=== PATIENT | male | born 1975 | race Caucasian/White ===

== ENCOUNTER 2024-01-05 20:46 | Emergency (ER) | payer BC, SELFPAY ==
[2024-01-05 20:50] VITALS: BP 150/94
--- NOTE | 2024-01-05 22:20 | ED.SKININJ ---
HPI-Injury
<KI Bautista (Lenka) - Last Filed: 01/05/24 22:42>
General
Chief Complaint: Musculo-Skeletal Complaint
Source: patient
Exam Limitations: none
Time Seen by Provider: 01/05/24 22:09
Nursing documentation reviewed up to this point in time: agreed with
History of Present Illness-Injury
Is pt an associate of [facility]?: No
Initial Injury comments:
Pt is a 48 yo male with PMHx of R olecranon bursitis who presents to the ED with concerns over retained foreign body near the L elbow x 5d. Pt states last (12/31), he was wood working and must have scraped his elbow on some wood. Later in the
day he removed a 1.5 inch piece of wood from his forearm and noticed some pain and swelling near his L elbow. He attempted to squeeze the area, but believes he pushed a wood sliver in further. 4d ago (Friday, 01/01), he had a telehealth visit and was
started on Bactrim BID x 7d. He reports the swelling and pain improved initially, but today the pain worsened and radiated to above his L elbow, 'it also feels more swollen'. He has pain with active supination and elbow flexion. Denies fevers,
chills, myalgias, numbness, tingling, streaking, cold extremities.
Unknown date of last tetanus, states likely over 10 years ago.
Past History
<KI Bautista (Lenka) - Last Filed: 01/05/24 22:42>
Past History
ED Past Medical History: GERD
ED Past Surgical History: Orthopedic (Left knee ACL repair, right olecranon bursitis) and Other (Hernia repair)
Social History
Tobacco: Non-smoker
Alcohol: None
Personal:
Living: with family
Employment: Employed
Family History
Family History: Other (Noncontributory)
Skin Exam
<KI Bautista (Lenka) - Last Filed: 01/05/24 22:42>
Foreign Body
Left Posterior Lateral Elbow:
Foreign body is: other (suspected deep foreign body. 3.5 cm x 3.5 cm region of indurated, mildly erythematous area to L posterior lateral elbow. No fluctuance, no drainage. Original laceration site healed over.)
Foreign body can be visualized?: No
Phy Exam
<KI Bautista (Lenka) - Last Filed: 01/05/24 22:42>
General Physical Exam
General Presentation: well appearing
General age: appears stated age
General Skin: warm and dry
General Habitus: normal
General Mental: alert
General Hydration: appears well hydrated
Cardiovascular Exam
Cardiovascular Exam: normal peripheral pulses
Pulmonary Exam
Pulmonary Exam: no respiratory distress
Neurological Exam
Neurological Exam: alert and oriented x3
Musculoskeletal Exam
Musculoskeletal Exam: full ROM, no edema, neuro vasc intact and other
Course
<KI Bautista (Lenka) - Last Filed: 01/05/24 22:42>
Orders/Labs/Results
Orders:
Orders
01/05/24 22:27
Tetanus/Diphth/Acelpertussis [Adacel] 0.5 ml IM .ONCE ONE
Elbow, 3 view, Left [CR Elbow - Left Min 3 Views ] Urgent
Comment:
Reason For Exam: abrasion post distal elbow-concern for FB
01/05/24 22:28
Ibuprofen [Motrin] 800 mg PO NOW STA
01/05/24 23:32
Cephalexin Monohydrate [Keflex] 1,000 mg PO NOW STA
Vital Signs
Initial and Last Documented VS:
Initial Vital Signs
Temp Pulse Resp BP Pulse Ox
98 F 80 22 150/94 99
01/05/24 20:50 01/05/24 20:50 01/05/24 20:50 01/05/24 20:50 01/05/24 20:50
Last Documented Vital Signs
Temp Pulse Resp BP Pulse Ox
98 F 66 22 150/98 100
01/05/24 20:50 01/05/24 23:35 01/05/24 23:35 01/05/24 23:35 01/05/24 23:35
<Elizabet Morrell DO - Last Filed: 01/05/24 23:46>
Orders/Labs/Results
Orders:
Orders
01/05/24 22:27
Tetanus/Diphth/Acelpertussis [Adacel] 0.5 ml IM .ONCE ONE
Elbow, 3 view, Left [CR Elbow - Left Min 3 Views ] Urgent
Comment:
Reason For Exam: abrasion post distal elbow-concern for FB
01/05/24 22:28
Ibuprofen [Motrin] 800 mg PO NOW STA
01/05/24 23:32
Cephalexin Monohydrate [Keflex] 1,000 mg PO NOW STA
Vital Signs
Initial and Last Documented VS:
Initial Vital Signs
Temp Pulse Resp BP Pulse Ox
98 F 80 22 150/94 99
01/05/24 20:50 01/05/24 20:50 01/05/24 20:50 01/05/24 20:50 01/05/24 20:50
Last Documented Vital Signs
Temp Pulse Resp BP Pulse Ox
98 F 66 22 150/98 100
01/05/24 20:50 01/05/24 23:35 01/05/24 23:35 01/05/24 23:35 01/05/24 23:35
<KI Bautista (Lenka) - Last Filed: 01/05/24 22:42>
MDM/Problems Addressed
Differential Diagnosis Includes:
48 yo male with hx of R olecranon bursitis, presenting today for induration, mild erythema to L posterior lateral upper forearm, just distal to the L elbow. Pt is on a 7d course of bactrim, prescribed by telehealth. He is currently on day 4.
DDx: retained FB, olecranon bursitis, septic joint
Due to lack of fluctuance or drainage plus the localization of injury just inferior of elbow and lack of redness/swelling into L elbow, lack of fevers or chills, and the current 4d course of antibiotics, septic joint is less likely. Olecranon
bursitis will be r/o with imaging.
Plan to XR elbow for possible FB
Plan to U/S elbow for possible FB
Plan to continue and finish 7d course of bactrim, start anti-inflammatories until sx resolution.
Plan to administer tetanus shot.
<KI Bautista (Lenka) - Last Filed: 01/05/24 22:42>
*Critical Care Note
Total Time (30-74mins, 75-104mins- exclusive of procedures): Not Applicable
<Elizabet Morrell DO - Last Filed: 01/05/24 23:46>
*Radiology
Radiology exam reviewed: preliminary read by ED provider (Left elbow x-ray shows no evidence of foreign body. Minimal focal soft tissue swelling posterior distal elbow region. No fracture.)
*Pulse Oximetry
Patient hypoxic: no
ED Attending Note
<KI Bautista (Lenka) - Last Filed: 01/05/24 22:42>
-
Portions of this chart may have been created with voice recognition software.� Occasional wrong word or��sound alike� substitutions may have occurred due to the inherent limitations of voice recognition software.
<Elizabet Morrell DO - Last Filed: 01/05/24 23:46>
ED Attending Note
Patient seen and examined by attending physician: Yes
I performed the substantive portion of visit, reviewed & personally made and approve the management plan that is documented in note by myself or CLYDE.: Yes
ED Attending Note:
This is a 48-year-old [id number] gentleman who presents with left posterior distal elbow pain, swelling that began 3 to 4 days ago. He is self-employed and while working with wood 4 days ago he inadvertently brushed his elbow against a
plank of wood resulting in a large splinter of wood embedding into his posteromedial mid forearm. He was able to remove this piece of wood from his mid forearm but the following day he noticed some redness and swelling about his posterior distal
elbow region. He did attempt to squeeze this area without results. No drainage. He had a telehealth visit on that day, 3 days ago, and was started on Bactrim which he has been taking twice daily. Initial swelling and redness improved until today
when swelling and pain seems to have worsened. He denies fever nor chills. No weakness or numbness. He is concerned for potential infection, concern for potential splinter foreign body. He has not attempted to poke her parotid at the area.
He has not been taking anything for pain.
No history of diabetes nor immunocompromise.
Unsure as to his last tetanus booster but believes this was greater than 10 years ago.
GENERAL: 48-year-old gentleman appears his stated age, awake and alert, pleasant, appears in no acute distress. Afebrile. Minimally hypertensive. Similar hypertension noted on previous visit April 2023.
EYE: anicteric
NECK: Supple, nontender, no meningismus, no significant adenopathy.
ENT: oral mucosa is moist. No rhinorrhea.
CARDIAC: Regular rate and rhythm. no murmur.
LUNGS: Clear breath sounds bilaterally, no acute respiratory distress, no wheezes/rales/rhonchi
NEUROLOGICAL: Alert and oriented x3, no focal neuro deficits. Gait is nunez and steady.
SKIN: Warm and dry, normal color, good turgor.
MUSCULOSKELETAL: No C/C/E. peripheral pulses are full and equal b/l. Left posterior distal elbow/proximal forearm region has a minute rounded scabbed abrasion overlying a roughly 3 cm x 3 cm area of significantly firm subcutaneous tissue. There is
a very, focal minimal pinkish erythema. No palpable heat. No surrounding erythema. No lymphangitis. No drainage. There is no tenderness nor edema of the olecranon nor joint swelling. No fluctuance nor palpable foreign body. At the dorsal
aspect of the mid forearm is a 3 mm superficial eschar. There is no focal soft tissue swelling nor erythema nor tenderness. Patient reports this is the site of splinter extraction.
Full elbow range of motion without difficulty nor pain.
PSYCH: Normal and appropriate interaction.
Concern for focal/smoldering cellulitis/early abscess. Concern for subcutaneous foreign body. Other consideration is focal inflammatory reaction. Patient is unsure if the wood he was working with was pressure-treated wood.
There is no evidence of joint involvement. No evidence of bursal involvement.
Will check x-ray to assess for potential radiopaque subcutaneous foreign body. Will plan for bedside ultrasound to assess for potential foreign body as well.
Clinically however there is no evidence of significant cellulitis and if abscess is forming it is without fluctuance nor pointing, at this point not amenable to incision and drainage.
Will update Tdap.
Will give ibuprofen for pain.
Patient noted to be mildly hypertensive. Similar hypertension noted during ED visit April of this year.
01/05/2024 2333 PM
Elbow x-ray shows no evidence of foreign body. There is focal soft tissue swelling posterior inferior elbow region. No bony abnormality.
Bedside soft tissue ultrasound shows no evidence of foreign body. There is a small pocket approximately 5 mm area in superficial subcutaneous area just beneath superficial abrasion that may be early abscess formation. No evidence of foreign body
within this focal area. And as above areas without fluctuance nor pointing. Not amenable to incision and drainage at this point.
Recommend continuing Bactrim and will add Keflex for broader coverage.
Recommend he initiate local moist heat 4 times daily and will add a short course of ibuprofen for pain, inflammation.
Prompt follow-up with PCP for recheck.
Return precautions discussed.
Discharge Plan
Departure
Patient Disposition: Home (Routine Discharge)
Date of Disposition: 01/05/24
Time of Disposition: 23:40
Patient with high blood pressure during this ER visit?: Yes
Condition: Good
Discharge Problem:
Abrasion of elbow with infection
Instructions: Cellulitis (Skin Infection), Adult ED, Boil, Adult ED, BLOOD PRESSURE
Prescriptions:
New
sulfamethoxazole-trimethoprim [Bactrim DS] 800-160 mg tablet
1 tab PO BID Qty: 14 0RF
ibuprofen 800 mg tablet
800 mg PO QIDPRN PRN (Reason: pain, fever-take with food) Qty: 30 0RF
cephalexin 500 mg capsule
1,000 mg PO BID 7 Days Qty: 28 0RF
No Action
hydrocodone-acetaminophen 1 EACH tablet
1 ea PO QIDPRN PRN (Reason: pain) Qty: 6 0RF
ondansetron 4 MG tablet,disintegrating
4 mg PO QIDPRN PRN (Reason: nausea/vomiting) Qty: 10 0RF
sulfamethoxazole-trimethoprim 1 TABLET tablet
1 tab PO BID Qty: 13 0RF
cephalexin 500 MG capsule
500 mg PO QID Qty: 27 0RF
Referrals:
NONE,* [Family Provider] -
Activity Restrictions/Additional Instructions:
Apply warm compresses 15 to 20 minutes 4 times daily to left posterior elbow area.
Continue Bactrim twice daily. We are adding a course of cephalexin to take with the Bactrim.
A prescription for ibuprofen has been provided to take 4 times daily as needed for pain, inflammation. Take this with something in her stomach.
Follow-up with your primary care physician this week for recheck.
Interventions
Interventions:
*Risk Screen - Suicide Last Done: 01/05/24 20:50
*General Assessment Last Done: 01/05/24 20:57
*Neglect/Abuse Screening Last Done: 01/05/24 20:50
ED- Fall Risk Assessment Last Done: 01/05/24 23:30
*ED COVID-19 Vaccine History Last Done: 01/05/24 20:57
ED-Musculoskeletal Assessment Last Done: 01/05/24 23:30
ED-Skin Assessment Last Done: 01/05/24 23:30
Discharge Date and Time
Print Language: ITALIAN
[2024-01-05] MEDS: MOTRIN 800 MG PO (22:35)
[2024-01-05] MEDS: ADACEL 0.5 ML IM (22:35)
[2024-01-05 23:35] VITALS: BP 150/98
[2024-01-05] MEDS: KEFLEX 1000 MG PO (23:39)
== END 2024-01-05 23:48 | disposition home or self-care (01) ==
LOC: EMR 20:46
PROVIDERS: EMERGENCY PHYSICIAN Emergency Medicine
DX: S50.312A Abrasion of left elbow, initial encounter (principal); L08.9 Local infection of the skin and subcutaneous tissue, unspecified; W22.8XXA Striking against or struck by other objects, initial encounter; M79.89 Other specified soft tissue disorders; Z23 Encounter for immunization; R03.0 Elevated blood-pressure reading, without diagnosis of hypertension; Z91.030 Bee allergy status
CPT/HCPCS: 99283; 90471; 73080; 90715